=== PATIENT | male | born 1970 | race African-American/Black ===

== ENCOUNTER 2021-08-01 09:30 | Outpatient (CLI) | payer OTHER | END 2021-08-01 10:00 | disposition home or self-care (01) | LOC: PPH VACUNA 09:30 | PROVIDERS: ATTEND Emergency Medicine Pediatric Emergency Medicine | DX: Z23 Encounter for immunization (principal) ==

== ENCOUNTER 2021-08-22 08:00 | Outpatient (CLI) | payer OTHER | END 2021-08-22 08:30 | disposition home or self-care (01) | LOC: PPH VACUNA 08:00 | PROVIDERS: ATTEND Emergency Medicine Pediatric Emergency Medicine | DX: Z23 Encounter for immunization (principal) ==

== ENCOUNTER 2022-05-25 21:44 | Emergency (ER) | payer OTHER ==
[~2022-05-25] VITALS: Ht 177.8 cm; Wt 86.2 kg
== END 2022-05-25 22:30 | disposition home or self-care (01) ==
LOC: ER 21:44
DX: M79.604 Pain in right leg (principal)